=== PATIENT | male | born 1960 | race Caucasian/White ===

== ENCOUNTER 2024-03-19 15:01 | Emergency (ER) | payer OTHER, BC ==
[~2024-03-19] VITALS: Ht 182.9 cm; Wt 104.3 kg
[2024-03-19 15:01] VITALS: BP_SYST 144; PULSE 95; RESP 17; TEMP 98; O2SAT 95
[2024-03-19] MEDS ORDERED: IBUP-1971 PO (16:09)
[2024-03-19] MEDS ORDERED: CYCL10TA24 PO (16:09)
[2024-03-19 16:15] VITALS: BP_SYST 136; PULSE 82; RESP 16; TEMP 98; O2SAT 95
== END 2024-03-19 16:15 | disposition home or self-care (01) ==
LOC: SED 15:01
DX: S16.1XXA Strain of muscle, fascia and tendon at neck level, initial encounter (principal); S39.012A Strain of muscle, fascia and tendon of lower back, initial encounter; Z79.899 Other long term (current) drug therapy; V89.2XXA Person injured in unspecified motor-vehicle accident, traffic, initial encounter; Y93.89 Activity, other specified; Y92.89 Other specified places as the place of occurrence of the external cause; Y99.8 Other external cause status
CPT/HCPCS: 99283